=== PATIENT | female | born 1975 | race Caucasian/White ===

== ENCOUNTER 2016-06-10 14:53 | Outpatient (CLI) | payer BC ==
[~2016-06-10 14:53] MED LIST: BIOTIN5 MG PO; GABAPENTIN300 MG PO; LEVOTHYROXINE50 MCG PO; LYSINE500 MG PO; MELOXICAM7.5 MG PO; NORCO1 TA1 PO; OXAYDO5 MG PO; PROAIR HFA IN; SAVELLA50 MG PO; TIZANIDINE HCL4 MG PO; VITAMIN B12100 MCG PO; VITAMIN C500 M1 PO; VITAMIN D-31000 UNIT PO; [UNRECOGNIZED DRUG - CODE] PO
--- NOTE | 2016-06-10 15:58 | DIAGNOSTIC IMAGING REPORT ---
PROCEDURE: MG BILATERAL DIAGNOSTIC W/CAD INDICATION: Palpable area upper outer left breast. Baseline mammogram. No family history breast carcinoma. TECHNIQUE: CC and MLO digital views of each breast with true-lateral digital view of the left breast. In addition, spot compression CC and MLO views were obtained of the upper outer and lateral left breast (region of clinical concern) . Finally, high-resolution left breast ultrasound was performed (18 mHz). COMPARISON: None. FINDINGS: MAMMOGRAM: Computer-aided detection applied. Dense parenchymal pattern. No evidence of mass or suspicious calcification in the left breast. BREAST ULTRASOUND: Breast tissue is heterogeneous, but within normal limits. There are two small simple cysts in the upper outer left breast (1.2 and 0.7 cm) which could represent incidental findings. IMPRESSION: 1. Negative mammogram with mild cystic changes in the upper outer left breast. 2. While there is no evidence of underlying abnormality, breast tissue is dense. As such, early follow-up left mammogram and left breast ultrasound in 6 months is recommended to confirm stability. 3. Findings discussed with the patient. RESULT CODE: 3- Probably benign findings - initial short-interval follow-up suggested. A. A negative report should not delay biopsy if a dominant or clinically suspicious mass is present. 10-15% of cancers are not identified by x-ray. B. A negative report may reinforce clinical impression. C. Adenosis and dense breasts may obscure an underlying neoplasm. D. False positive reports average 6-10%. E.. A yearly screening mammogram is recommended. A reminder letter will be scheduled.
== END 2016-06-10 23:00 ==
LOC: MAM SRH 14:53
DX: N63 Unspecified lump in breast (principal); N64.4 Mastodynia